=== PATIENT | male | born 1985 ===

== ENCOUNTER 2017-09-07 00:34 | Emergency (ER) | payer OTHER ==
[2017-09-07 00:46] VITALS: PULSE 73
[2017-09-07] MEDS ORDERED: Naproxen 500 MG TAB PO STA (02:28)
[2017-09-07] MEDS ORDERED: Naproxen 500 MG TAB PO ONE (02:47)
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
[2017-09-07 04:17] VITALS: BP 128/69; RESP 17; TEMP 98.2; O2SAT 99
--- NOTE | 2017-09-07 08:34 | RAD ---
PROCEDURE: Cervical Spine Radiographs. HISTORY: Pain. COMPARISON: None. FINDINGS: BONES: Alignment maintained. No fracture. Dens Intact. DISC SPACES: Normal. SOFT TISSUES: Normal. No prevertebral soft tissue swelling. OTHER FINDINGS: None. IMPRESSION: Unremarkable cervical spine radiographs.
--- NOTE | 2017-09-07 08:35 | RAD ---
HISTORY: pain COMPARISON: No prior. FINDINGS: BONES: Straightened thoracic curvature. No fracture or spondylolisthesis identified. No destructive bony lesion identified. DISC SPACES: Normal. SOFT TISSUES: Normal. OTHER FINDINGS: None. IMPRESSION: Straightened thoracic curvature. No fracture or spondylolisthesis appreciable grossly.
== END 2017-09-07 04:04 | disposition home or self-care (01) ==
LOC: H.ER 00:34
DX: S16.1XXA Strain of muscle, fascia and tendon at neck level, initial encounter (principal); V43.52XA Car driver injured in collision with other type car in traffic accident, initial encounter; Y92.410 Unspecified street and highway as the place of occurrence of the external cause